=== PATIENT | female | born 1940 | race Caucasian/White ===

== ENCOUNTER → 2019-08-15 | Outpatient (CLI) | payer MEDICARE ==
[~2019-08-15] MED LIST: ALBU90OI; ASCO500; ASCO500 PO; ASPI81CH; ASPI81EC PO; CALMAGZIN; CHOL10002; DILT180 PO; LISI5 PO; LOSA25; METF500; MULTI VITAMIN1 EACH; OMEG1CAP30 PO; Omeprazole20 M1; PRAV20; Synthroid75 MCG; TAZTIA XT360 MG; THYR60 PO
== END | disposition home or self-care (01) ==
LOC: LAB SRC 04:00 → LAB SHORT 04:00 → LAB FUT 08-13 10:55 → EDSTATUS 08-13 10:55
DX: N18.2 Chronic kidney disease, stage 2 (mild) (principal)
CPT/HCPCS: 82043

== ENCOUNTER → 2019-08-20 | Outpatient (CLI) | payer MEDICARE ==
[2019-08-23 07:08] LABS: HPV 16 Negative (Negative); HPV 18 Negative (Negative); HPV OTHER HR TYPES Negative (Negative)
== END | disposition home or self-care (01) ==
LOC: LAB SHORT 17:55 → LAB 17:55
PROVIDERS: Nurse Practitioner Women's Health
DX: Z12.4 Encounter for screening for malignant neoplasm of cervix (principal); Z91.89 Other specified personal risk factors, not elsewhere classified
CPT/HCPCS: 87624; G0123

== ENCOUNTER → 2021-06-29 | Outpatient (CLI) | payer MEDICARE | END | disposition home or self-care (01) | LOC: LAB 06:40 → LAB SHORT 06:40 | PROVIDERS: Internal Medicine Nephrology | DX: N18.30 Chronic kidney disease, stage 3 unspecified (principal); D63.1 Anemia in chronic kidney disease; N25.81 Secondary hyperparathyroidism of renal origin; E55.9 Vitamin D deficiency, unspecified; E78.00 Pure hypercholesterolemia, unspecified; D51.8 Other vitamin B12 deficiency anemias; D52.8 Other folate deficiency anemias; D50.9 Iron deficiency anemia, unspecified; R76.9 Abnormal immunological finding in serum, unspecified; R94.5 Abnormal results of liver function studies; R94.6 Abnormal results of thyroid function studies | CPT/HCPCS: 81050; 82108; 82570; 84156 ==

== ENCOUNTER → 2021-09-16 | Outpatient (CLI) | payer MEDICARE ==
[2021-09-16 16:28] LABS: Creatinine Urine 65.3 mg/dL (27.00-270.00); Protein, Urine Quantitative 74.2 mg/dL (0.0-11.9)
== END | disposition home or self-care (01) ==
LOC: LAB 08:25 → LAB SHORT 08:25 → LAB FUT 06-26 10:55
PROVIDERS: Internal Medicine Nephrology
DX: N18.30 Chronic kidney disease, stage 3 unspecified (principal); D63.1 Anemia in chronic kidney disease; E83.52 Hypercalcemia; N25.81 Secondary hyperparathyroidism of renal origin; E78.00 Pure hypercholesterolemia, unspecified; G60.9 Hereditary and idiopathic neuropathy, unspecified; D51.8 Other vitamin B12 deficiency anemias; D50.9 Iron deficiency anemia, unspecified; R94.5 Abnormal results of liver function studies; R76.9 Abnormal immunological finding in serum, unspecified; R94.6 Abnormal results of thyroid function studies
CPT/HCPCS: 81050; 82043; 82570; 84156

== ENCOUNTER → 2022-02-09 | Outpatient (CLI) | payer MEDICARE | LOC: LAB 11:18 → LAB SHORT 11:18 | DX: E11.22 Type 2 diabetes mellitus with diabetic chronic kidney disease (principal); N18.2 Chronic kidney disease, stage 2 (mild) | CPT/HCPCS: 36415; 83036 ==

== ENCOUNTER 2022-05-26 19:00 | Inpatient (IN) | payer MEDICARE ==
[~2022-05-26] VITALS: Ht 167.6 cm; Wt 61.5 kg
[~2022-05-26 19:00] MED LIST changes: -ASCO500; -ASPI81CH; +ASPI81CH PO; +CALCIUM-MAGNES1 EAC9 PO; -CALMAGZIN; -CHOL10002; +DILTIAZEM 24HR180 M4 PO; +LEVSOD75 PO; -MULTI VITAMIN1 EACH; +MULTI VITAMIN1 EACH PO; -Omeprazole20 M1; +Omeprazole20 M1 PO; -Synthroid75 MCG; -TAZTIA XT360 MG; +VITAMIN D31000 UNI1 PO
[2022-05-26 19:55] LABS: BASOPHILS ABSOLUTE AUTO 0.09 K/mm3 (0.00-0.23); BASOPHILS PERCENT AUTO 1 % (0-2); EOSINOPHILS ABSOLUTE AUTO 0.42 K/mm3 (0.00-0.68); EOSINOPHILS PERCENT AUTO 5 % (0-6); Hematocrit 41.9 % (33.0-51.0); Hemoglobin 14.3 g/dL (11.5-16.0); IMMATURE GRAN ABSOLUTE AUTO 0.01 K/mm3 (0.00-0.10); IMMATURE GRAN PERCENT AUTO 0 % (0-1); LYMPHOCYTES ABSOLUTE AUTO 2.24 K/mm3 (0.84-5.20); LYMPHOCYTES PERCENT AUTO 25 % (21-46); MONOCYTES ABSOLUTE AUTO 0.51 K/mm3 (0.16-1.47); MONOCYTES PERCENT AUTO 6 % (4-13); Mean Corpuscular HGB 31.1 pg (26.0-34.0); Mean Corpuscular HGB Conc 34.1 g/dL (31.5-36.5); Mean Corpuscular Volume 91 fL (80-100); Mean Platelet Volume 9.5 fL (9.1-12.4); NEUTROPHILS ABSOLUTE AUTO 5.57 K/mm3 (1.96-9.15); NEUTROPHILS PERCENT AUTO 63 % (41-73); Platelet Count 361 K/mm3 (150-400); RDW Coefficient Variation 13.8 % (11.7-14.2); RDW Standard Deviation 46.5 fL (35.1-46.3); White Blood Cell Count 8.84 K/mm3 (4.00-11.30)
[2022-05-26 20:13] LABS: Albumin, Blood 4.2 g/dL (3.4-5.0); Albumin/Globulin Ratio 0.9 (0.8-1.8); Bilirubin, Total 0.5 mg/dL (0.1-1.0); Bun/Creatinine Ratio 19.9 (12.0-20.0); Calcium, Blood 10.2 mg/dL (8.5-10.1); Creatinine, Blood 1.41 mg/dL (0.40-1.00); Globulin, Blood 4.7 g/dL (2.2-4.0); Potassium, Blood 3.9 mmol/L (3.5-5.5); Total Protein, Blood 8.9 g/dL (6.4-8.2)
[2022-05-26 21:33] LABS: Influenza A, PCR NEGATIVE (NEGATIVE); Influenza B, PCR NEGATIVE (NEGATIVE); Resp Syncytial Virus, PCR NEGATIVE (NEGATIVE); SARS-Cov-2 (COVID-19) PCR, MMC NEGATIVE (NEGATIVE)
[2022-05-27] MEDS ORDERED: Ketoconazole120 ML TOP (01:11)
[2022-05-27] MEDS ORDERED: IBANDRONATE SO150 MG PO (01:11)
[2022-05-27 02:06] LABS: CHOL/HDL RATIO 4.7; Cholesterol 280 mg/dL (50-200); HDL Cholesterol 59 mg/dL (>39); Low Density Lipoprotein Chol 177 mg/dL (0-110); Triglycerides 221 mg/dL (30-160); Very Low Density Lipoprot Chol 44 mg/dL (6-32)
[2022-05-27 02:11] LABS: CPK Creatine Kinase 68 U/L (26-193)
--- NOTE | 2022-05-27 02:15 | NUR ---
0152 PT ARRIVED TO ROOM FROM ER VIA DIETERRJAZIEL IN STABLE CONDITION. PT IS AAO X 4, ON 2L NC O2 AT 99%. PT DENIES ANY DISCOMFORT AT THIS TIME. 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 BP IS HIGH ON ARRIVAL AT 201/104, THIS IS A SIGNIFICANT CHANGE FROM THE PREVIOUS ER VITALS, WE ATTEMPTED A DIFFERENT SIZED CUFF AND BOTH ARMS. WE WILL RECHECK AGAIN IN 30 MINUTES AND IF IT IS STILL HIGH, NOTIFY THE DR AND F/U WITH ANY NEW ORDERS. NO OTHER APPARENT SIGNS OF DISTRESS. CALL LIGHT IS IN REACH.
--- NOTE | 2022-05-27 04:29 | NUR ---
PT'S BP ON ADMIT WAS 201/104, 183/85. CALLED , FIDEL PENA, GAVE AT 0323. BP RECHECK 0424 WAS 162/79. PT DENIES ANY DISCOMFORT AT THIS TIME. DENIES NEED FOR ANYTHING AT THIS TIME. NO APPARENT SIGNS OF DISTRESS. CALL LIGHT IS IN REACH.
--- NOTE | 2022-05-27 04:31 | NUR ---
PT IS AAO X 4, NAUSEA AND ABD PAIN IN ER, GOT DILAUDED, MS, ZOFRAN, AND PHERNERGAN IN ER. NO FURTHER NAUSEA OR ABD PAIN SINCE ARRIVAL TO ROOM. DENIES SOB. ON 2L NC AT 99%. POSSIBLE UNDIAGNOSED SLEEP APNEA WITTNESSED BY CHEMICAL MACHINE TENDER.
--- NOTE | 2022-05-27 06:02 | NUR ---
PT LYING IN BED, EYES CLOSED, APPEARS TO BE RESTING. BREATHING IS EVEN, UNLABORED. NO APPARENT SIGNS OF DISTRESS. CALL LIGHT IS IN REACH. NO OTHER CHANGES THIS SHIFT.
[2022-05-27 10:02] LABS: BASOPHILS ABSOLUTE AUTO 0.04 K/mm3 (0.00-0.23); BASOPHILS PERCENT AUTO 0 % (0-2); EOSINOPHILS ABSOLUTE AUTO 0.01 K/mm3 (0.00-0.68); EOSINOPHILS PERCENT AUTO 0 % (0-6); Hematocrit 39.7 % (33.0-51.0); Hemoglobin 13.3 g/dL (11.5-16.0); IMMATURE GRAN ABSOLUTE AUTO 0.05 K/mm3 (0.00-0.10); IMMATURE GRAN PERCENT AUTO 0 % (0-1); LYMPHOCYTES ABSOLUTE AUTO 1.51 K/mm3 (0.84-5.20); LYMPHOCYTES PERCENT AUTO 11 % (21-46); MONOCYTES ABSOLUTE AUTO 0.82 K/mm3 (0.16-1.47); MONOCYTES PERCENT AUTO 6 % (4-13); Mean Corpuscular HGB 31.3 pg (26.0-34.0); Mean Corpuscular HGB Conc 33.5 g/dL (31.5-36.5); Mean Corpuscular Volume 93 fL (80-100); Mean Platelet Volume 9.5 fL (9.1-12.4); NEUTROPHILS ABSOLUTE AUTO 11.24 K/mm3 (1.96-9.15); NEUTROPHILS PERCENT AUTO 82 % (41-73); Platelet Count 329 K/mm3 (150-400); RDW Standard Deviation 47.6 fL (35.1-46.3); Red Blood Cell Count 4.25 M/mm3 (3.80-5.20); White Blood Cell Count 13.67 K/mm3 (4.00-11.30)
[2022-05-27 10:47] LABS: Albumin, Blood 3.4 g/dL (3.4-5.0); Albumin/Globulin Ratio 0.8 (0.8-1.8); Bilirubin, Total 0.4 mg/dL (0.1-1.0); Bun/Creatinine Ratio 23.7 (12.0-20.0); Calcium, Blood 9.5 mg/dL (8.5-10.1); Creatinine, Blood 1.14 mg/dL (0.40-1.00); Globulin, Blood 4.2 g/dL (2.2-4.0); Potassium, Blood 4.4 mmol/L (3.5-5.5); Total Protein, Blood 7.6 g/dL (6.4-8.2)
[2022-05-27 12:23] LABS: CPK Creatine Kinase 52 U/L (26-193)
--- NOTE | 2022-05-27 18:37 | NUR ---
SHIFT SUMMARY PT HAS BEEN TOLERATING A REGULAR DIET FOR LUNCH AND DINNER. NO COMPLAINTS OF PAIN/NAUSEA. PT DID HAVE ONE EPISODE OF LOOSE STOOL AFTER LUNCH. PT'S IV SALINE LOCKED. UP TO BATHROOM INDEPENDENTLY. NO ACUTE CHANGES THIS SHIFT. CALL LIGHT IN REACH. WILL CONTINUE TO MONITOR AND REPORT TO ONCOMING.
--- NOTE | 2022-05-28 05:03 | NUR ---
SUMMARY: PT A/OX4, INDEPENDENT IN ROOM AND PLEASANT/COOPERATIVE CARE. SHE SLEPT MAJORITY ON NOCTE W/O COMPLAINTS. NO NAUSEA OR PAIN THIS SHIFT. VSS AND AFEBRILE, NO ACUTE CHANGES. PROBABLE D/C HOME TODAY. WCTM/REPORT TO DAY RN.
--- NOTE | 2022-05-28 12:05 | NUR ---
SHIFT SUMMARY PATIENT IS ALERT AND ORIENTED X4. PATIENT HAS HAD NO ACUTE EVENTS THIS SHIFT. VITAL SIGNS REVIEWED. PATIENT HAS BEEN IND THIS SHIFT. IV REMOVED WNL. PATIENT WAS READ AND UNDERSTOOD DISCHARGE ORDERS. MEDICATIONS FAXED TO PATIENTS PHARMACY. PATIENT WAS WALKED OFF FLOOR WITH FRIEND TO PATIENTS CAR.
== END 2022-05-28 11:53 | disposition home or self-care (01) | DRG 440 ==
LOC: ER 19:00 → MEDS 23:33
PROVIDERS: Student in an Organized Health Care Education/Training Program; ADMIT Internal Medicine
DX: K85.90 Acute pancreatitis without necrosis or infection, unspecified (principal); I12.9 Hypertensive chronic kidney disease with stage 1 through stage 4 chronic kidney disease, or unspecified chronic kidney disease; N18.30 Chronic kidney disease, stage 3 unspecified; Z20.822 Contact with and (suspected) exposure to COVID-19; E03.9 Hypothyroidism, unspecified; E11.22 Type 2 diabetes mellitus with diabetic chronic kidney disease; K21.9 Gastro-esophageal reflux disease without esophagitis; E78.5 Hyperlipidemia, unspecified; Z86.73 Personal history of transient ischemic attack (TIA), and cerebral infarction without residual deficits; Z87.891 Personal history of nicotine dependence; Z98.41 Cataract extraction status, right eye; Z98.42 Cataract extraction status, left eye; Z90.89 Acquired absence of other organs; Z98.51 Tubal ligation status; Z88.2 Allergy status to sulfonamides; Z88.8 Allergy status to other drugs, medicaments and biological substances; Z79.84 Long term (current) use of oral hypoglycemic drugs; Z79.82 Long term (current) use of aspirin; Z79.899 Other long term (current) drug therapy
CPT/HCPCS: 0241U; 36415; 76705; 80053; 80061; 82550; 83690; 84484; 85025; 93005; 93010; 96361; 96374; 96375; 99285-25; A9270; J0360; J1170; J1650; J2270; J2405; J2550; J7030

== ENCOUNTER → 2022-09-01 | Outpatient (CLI) | payer MEDICARE ==
[~2022-09-01] MED LIST changes: +IBANDRONATE SO150 MG PO; +Ketoconazole120 ML TOP
== END | disposition home or self-care (01) ==
LOC: LAB SHORT 14:05 → LAB 14:05
DX: K85.00 Idiopathic acute pancreatitis without necrosis or infection (principal); K90.9 Intestinal malabsorption, unspecified
CPT/HCPCS: 82653

== ENCOUNTER 2024-06-07 11:56 | Emergency (ER) | payer MEDICARE ==
[~2024-06-07] VITALS: Ht 167.6 cm; Wt 49.4 kg
[2024-06-07 12:26] VITALS: BP 179/102
[2024-06-07 12:57] LABS: BASOPHILS ABSOLUTE AUTO 0.07 K/mm3 (0.00-0.23); BASOPHILS PERCENT AUTO 1 % (0-2); EOSINOPHILS ABSOLUTE AUTO 0.48 K/mm3 (0.00-0.68); EOSINOPHILS PERCENT AUTO 5 % (0-6); Hematocrit 40.5 % (33.0-51.0); Hemoglobin 13.7 g/dL (11.5-16.0); IMMATURE GRAN ABSOLUTE AUTO 0.02 K/mm3 (0.00-0.10); IMMATURE GRAN PERCENT AUTO 0 % (0-1); LYMPHOCYTES ABSOLUTE AUTO 1.87 K/mm3 (0.84-5.20); LYMPHOCYTES PERCENT AUTO 18 % (21-46); MONOCYTES ABSOLUTE AUTO 0.52 K/mm3 (0.16-1.47); MONOCYTES PERCENT AUTO 5 % (4-13); Mean Corpuscular HGB 31.1 pg (26.0-34.0); Mean Corpuscular HGB Conc 33.8 g/dL (31.5-36.5); Mean Corpuscular Volume 92 fL (80-100); Mean Platelet Volume 9.3 fL (9.1-12.4); NEUTROPHILS ABSOLUTE AUTO 7.25 K/mm3 (1.96-9.15); NEUTROPHILS PERCENT AUTO 71 % (41-73); Platelet Count 310 K/mm3 (150-400); RDW Coefficient Variation 13.5 % (11.7-14.2); White Blood Cell Count 10.21 K/mm3 (4.00-11.30)
[2024-06-07 13:21] LABS: Albumin, Blood 3.7 g/dL (3.4-5.0); Albumin/Globulin Ratio 0.9 (0.8-1.8); Bilirubin, Total 0.5 mg/dL (0.1-1.0); Bun/Creatinine Ratio 16.9 (12.0-20.0); Calcium, Blood 9.6 mg/dL (8.5-10.1); Creatinine, Blood 1.48 mg/dL (0.40-1.00); Globulin, Blood 4.3 g/dL (2.2-4.0); Potassium, Blood 4.2 mmol/L (3.5-5.5)
== END 2024-06-07 16:05 | disposition home or self-care (01) ==
LOC: ER 11:56
PROVIDERS: Student in an Organized Health Care Education/Training Program
DX: K59.00 Constipation, unspecified (principal); E03.9 Hypothyroidism, unspecified; I10 Essential (primary) hypertension; E11.9 Type 2 diabetes mellitus without complications; Z87.891 Personal history of nicotine dependence; Z86.73 Personal history of transient ischemic attack (TIA), and cerebral infarction without residual deficits; Z79.82 Long term (current) use of aspirin; Z79.899 Other long term (current) drug therapy; Z88.1 Allergy status to other antibiotic agents; Z88.8 Allergy status to other drugs, medicaments and biological substances
CPT/HCPCS: 74018; 80053; 83690; 85025; 99284-25